=== PATIENT | male | born 1970 | race Two or more races ===

== ENCOUNTER 2023-06-06 19:43 | Inpatient (IN) | payer MEDICAID ==
[~2023-06-06] VITALS: Ht 162.6 cm; Wt 54.4 kg
[2023-06-06 20:27] LABS: DIFFERENTIAL COMMENT 1; HEMATOCRIT. 43.2 % (42.0-52.0); HEMOGLOBIN. 14.3 g/dL (14.0-18.0); MEAN CORPUSCULAR HEMOGLOBIN 28.1 pg (28.0-32.0); MEAN CORPUSCULAR HGB CONC 33.1 g/dL (31.0-37.0); MEAN CORPUSCULAR VOLUME 84.8 fL (80.0-94.0); MEAN PLATELET VOLUME 8.7 fl (7.4-10.4); PLATELET 233 x1000/uL (130-400); RED BLOOD CELL COUNT 5.09 mill/uL (4.7-6.1); RED CELL DISTRIBUTION WIDTH 13.4 % (11.6-14.6); WHITE BLOOD COUNT 21.4 x1000/uL (4.5-11.0)
[2023-06-06 20:36] LABS: INR 1.1; PROTHROMBIN TIME 11.7 sec (9.6-11.0)
[2023-06-06 20:40] LABS: ALANINE AMINOTRANSFERASE 9 IU/L (10-49); ALBUMIN 4.6 g/dL (3.2-4.8); ASPARTATE AMINOTRANSFERASE 19 IU/L (<34); BILIRUBIN TOTAL 0.9 mg/dL (0.1-1.0); CALCIUM 9.9 mg/dL (8.7-10.4); CARBON DIOXIDE 24 mEq/L (21-32); CHLORIDE 97 mEq/L (98-107); CREATININE 1.3 mg/dL (0.6-1.3); GLUCOSE 112 mg/dL (70-105); POTASSIUM 4.3 mEq/L (3.5-5.1); PROTEIN TOTAL 8.8 g/dL (6.0-8.3); SODIUM 132 mEq/L (136-145); UREA NITROGEN BLOOD 13 mg/dL (9-23)
[2023-06-06 20:58] LABS: PLATELET ESTIMATE NORMAL
[2023-06-06] MEDS ORDERED: CEFTRIAXONE 1GM PREMIX 50 ML IV ONE (21:00)
[2023-06-06 22:38] LABS: CLARITY URINE TURBID (CLEAR); COLOR URINE DARK YELLOW (YELLOW); GLUCOSE URINE NEGATIVE (NEGATIVE); KETONES URINE 2+ (NEGATIVE); LEUKOCYTE ESTERASE URINE 2+ (NEGATIVE); NITRITE URINE NEGATIVE (NEGATIVE); OCCULT BLOOD URINE 3+ (NEGATIVE); PROTEIN URINE 2+ (NEGATIVE); SPECIFIC GRAVITY URINE 1.022 (1.005-1.030)
[2023-06-06 22:51] LABS: BACTERIA URINE 2+; RBC URINE TNTC /hpf (0-2); SQUAMOUS EPITHELIAL CELL URINE 1+ /lpf (RARE/1+)
[2023-06-06 22:52] LABS: MUCUS URINE 1+ /lpf (NONE/TRACE); WBC URINE 25-50 /hpf (0-2)
[2023-06-07 04:42] VITALS: BP 113/69; PULSE 118; RESP 18; TEMP 97.9
[2023-06-07] MEDS ORDERED: GUAIFENESIN 200MG/10ML SUGAR FREE UDC PO PRN (07:30)
[2023-06-07] MEDS ORDERED: ONDANSETRON HCL 4MG/2ML INJ IV PRN (07:30)
[2023-06-07] MEDS ORDERED: DOCUSATE SODIUM 100MG CAPSULE PO PRN (07:30)
[2023-06-07] MEDS ORDERED: ACETAMINOPHEN 325MG TABLET PO PRN (07:30)
[2023-06-07] MEDS ORDERED: TRAMADOL 50MG TABLET PO PRN (07:30)
[2023-06-07] MEDS ORDERED: NALOXONE HCL 0.4MG/ML VIAL IV PRN (07:45)
[2023-06-07 08:00] VITALS: BP 111/68; PULSE 84; RESP 16; TEMP 98.4
[2023-06-07] MEDS: SODIUM CHLORIDE 0.9% 1,000 ML IV SCH ×2 (08:00→21:05)
[2023-06-07] MEDS: PIPERACILLIN/TAZO 3.375G/50ML 50 ML IV SCH ×3 (09:25→21:05)
[2023-06-07 12:00] VITALS: BP 116/59; PULSE 90; RESP 16; TEMP 98
[2023-06-07] MEDS: TAMSULOSIN HCL 0.4MG SR CAPSULE PO SCH (12:39)
[2023-06-07 16:09] VITALS: BP 103/70; PULSE 109; RESP 18; TEMP 98.2
[2023-06-07 19:16] VITALS: BP 113/71; PULSE 105; RESP 18; TEMP 97.9
[2023-06-08 00:30] VITALS: BP 109/70; PULSE 112; RESP 18; TEMP 97
[2023-06-08 04:00] VITALS: BP 105/63; PULSE 90; RESP 20; TEMP 97.6
[2023-06-08] MEDS: PIPERACILLIN/TAZO 3.375G/50ML 50 ML IV SCH ×3 (05:30→22:06)
[2023-06-08 06:59] LABS: BASOPHILS % 0.1 % (0.0-2.0); EOSINOPHILS % 0.2 % (0.0-5.0); HEMATOCRIT. 39.1 % (42.0-52.0); HEMOGLOBIN. 13.2 g/dL (14.0-18.0); LYMPHOCYTES % 9.5 % (20.0-50.0); MEAN CORPUSCULAR HEMOGLOBIN 28.7 pg (28.0-32.0); MEAN CORPUSCULAR HGB CONC 33.7 g/dL (31.0-37.0); MEAN CORPUSCULAR VOLUME 85.4 fL (80.0-94.0); MEAN PLATELET VOLUME 9.1 fl (7.4-10.4); MONOCYTES % 8.4 % (2.0-8.0); NEUTROPHILS % 81.8 % (40.0-76.0); PLATELET 214 x1000/uL (130-400); RED BLOOD CELL COUNT 4.58 mill/uL (4.7-6.1); RED CELL DISTRIBUTION WIDTH 13.4 % (11.6-14.6); WHITE BLOOD COUNT 12.3 x1000/uL (4.5-11.0)
[2023-06-08 08:00] VITALS: BP 113/67; PULSE 108; RESP 18; TEMP 97.1
[2023-06-08 08:03] LABS: ALANINE AMINOTRANSFERASE 20 IU/L (10-49); ASPARTATE AMINOTRANSFERASE 29 IU/L (<34); BILIRUBIN TOTAL 0.4 mg/dL (0.1-1.0); CALCIUM 9.1 mg/dL (8.7-10.4); CARBON DIOXIDE 23 mEq/L (21-32); CHLORIDE 102 mEq/L (98-107); CHOLESTEROL 172 mg/dL (<200); CREATININE 0.9 mg/dL (0.6-1.3); GLUCOSE 85 mg/dL (70-105); HDL CHOLESTEROL 62 mg/dL (>55); LDL CHOLESTEROL 57 mg/dL (5-100); POTASSIUM 3.5 mEq/L (3.5-5.1); PROTEIN TOTAL 7.7 g/dL (6.0-8.3); SODIUM 135 mEq/L (136-145); TRIGLYCERIDE 152 mg/dL (0-150); UREA NITROGEN BLOOD 16 mg/dL (9-23)
[2023-06-08] MEDS: TAMSULOSIN HCL 0.4MG SR CAPSULE PO SCH (08:56)
[2023-06-08] MEDS: SODIUM CHLORIDE 0.9% 1,000 ML IV SCH (10:40)
[2023-06-08 11:51] VITALS: BP 107/61; PULSE 87; RESP 18; TEMP 97.4
[2023-06-08 16:00] VITALS: BP 112/62; PULSE 92; RESP 20; TEMP 97.3
[2023-06-08 20:00] VITALS: BP 120/66; PULSE 77; RESP 18; TEMP 97.7
[2023-06-09] VITALS: BP 111/68; PULSE 86; RESP 18; TEMP 97.6
[2023-06-09] MEDS: SODIUM CHLORIDE 0.9% 1,000 ML IV SCH (01:32)
[2023-06-09 04:00] VITALS: BP 107/62; PULSE 79; RESP 18; TEMP 97.8
[2023-06-09] MEDS: PIPERACILLIN/TAZO 3.375G/50ML 50 ML IV SCH (07:18)
[2023-06-09 08:00] VITALS: BP 108/64; PULSE 98; RESP 18; TEMP 97.6
[2023-06-09 08:03] LABS: ALANINE AMINOTRANSFERASE 36 IU/L (10-49); ALBUMIN 3.7 g/dL (3.2-4.8); ASPARTATE AMINOTRANSFERASE 36 IU/L (<34); BILIRUBIN TOTAL 0.4 mg/dL (0.1-1.0); CALCIUM 8.9 mg/dL (8.7-10.4); CARBON DIOXIDE 23 mEq/L (21-32); CHLORIDE 105 mEq/L (98-107); CREATININE 0.9 mg/dL (0.6-1.3); GLUCOSE 85 mg/dL (70-105); POTASSIUM 3.6 mEq/L (3.5-5.1); PROTEIN TOTAL 6.9 g/dL (6.0-8.3); SODIUM 139 mEq/L (136-145); UREA NITROGEN BLOOD 12 mg/dL (9-23)
[2023-06-09 08:26] LABS: HEMATOCRIT. 34.8 % (42.0-52.0); MEAN CORPUSCULAR HEMOGLOBIN 28.8 pg (28.0-32.0); MEAN CORPUSCULAR HGB CONC 34.5 g/dL (31.0-37.0); MEAN CORPUSCULAR VOLUME 83.4 fL (80.0-94.0); MEAN PLATELET VOLUME 8.6 fl (7.4-10.4); PLATELET 233 x1000/uL (130-400); RED BLOOD CELL COUNT 4.18 mill/uL (4.7-6.1); RED CELL DISTRIBUTION WIDTH 13.2 % (11.6-14.6); WHITE BLOOD COUNT 5.4 x1000/uL (4.5-11.0)
[2023-06-09 08:45] LABS: DIFFERENTIAL COMMENT 1
[2023-06-09] MEDS: TAMSULOSIN HCL 0.4MG SR CAPSULE PO SCH (08:54)
[2023-06-09 11:55] VITALS: BP 108/64; PULSE 75; TEMP 97.6; O2SAT 98
[2023-06-09 12:00] VITALS: BP 121/70; PULSE 101; RESP 18; TEMP 97
[2023-06-09 17:28] LABS: PLATELET ESTIMATE NORMAL
== END 2023-06-09 13:20 | disposition home or self-care (01) | DRG 720 ==
LOC: ER 19:43 → EDBEDREQ 23:13 → EDBEDREQTM 23:13 → EDBEDREQSVC 23:13 → 7WST 06-07 01:42 → EDBEDREQDT 06-07 01:52 → EDBEDREQTM 06-07 01:52 → EDBEDREQ 06-07 01:52
PROVIDERS: ADMIT Hospitalist; ATTEND Hospitalist
DX: A41.9 Sepsis, unspecified organism (principal); E87.1 Hypo-osmolality and hyponatremia; N40.0 Benign prostatic hyperplasia without lower urinary tract symptoms; N30.90 Cystitis, unspecified without hematuria; Z79.899 Other long term (current) drug therapy
CPT/HCPCS: 36415; 71045; 74176; 80053; 80061; 81003; 83605; 83735; 84145; 85025; 87077; 87186; 93005; 99291; C1893; J0696; J2543; J7030